=== PATIENT | female | born 1995 | race Caucasian/White ===

== ENCOUNTER 2024-04-20 22:46 | Emergency (ER) | payer BC ==
[~2024-04-20] VITALS: Ht 157.5 cm; Wt 90.9 kg
[2024-04-20] MEDS ORDERED: ipratropium/albuterol 3ml nebule NEB PRN (23:05)
[2024-04-20] MEDS: hydrOXYzine 25 MG tablet PO ONE (23:21)
[2024-04-20] MEDS: famotidine 20mg tablet PO ONE (23:21)
[2024-04-20] MEDS: methylPREDNISolone sod succ 125mg/2ml vial IM ONE (23:22)
[2024-04-20] MEDS: ipratropium/albuterol 3ml nebule NEB STA (23:33)
[2024-04-21] MEDS: LORazepam 2 mg/ml vial IV ONE (01:15)
[2024-04-21] MEDS: normal saline 1000ML IV soln IVB ONE (01:23)
[2024-04-21 02:53] VITALS: BP 131/60; PULSE 92; RESP 14; TEMP 98.4; O2SAT 98
== END 2024-04-21 02:55 | disposition home or self-care (01) ==
LOC: ER 22:47
DX: T88.7XXA Unspecified adverse effect of drug or medicament, initial encounter (principal); T50.905A Adverse effect of unspecified drugs, medicaments and biological substances, initial encounter; Y92.89 Other specified places as the place of occurrence of the external cause
CPT/HCPCS: 71045; 96372; 96374; 99284; J2060; J2919; J7030; Q0177; A6449

== ENCOUNTER 2024-07-02 21:09 | Emergency (ER) | payer BC ==
[~2024-07-02] VITALS: Ht 157.5 cm; Wt 99.3 kg
[2024-07-03 00:42] VITALS: BP 129/74; PULSE 66; RESP 16; TEMP 97.7; O2SAT 99
== END 2024-07-03 02:25 | disposition left against medical advice (07) ==
LOC: ER 21:09
DX: M54.6 Pain in thoracic spine (principal); M54.2 Cervicalgia; R51.9 Headache, unspecified; R50.9 Fever, unspecified; Z53.21 Procedure and treatment not carried out due to patient leaving prior to being seen by health care provider

== ENCOUNTER 2024-07-04 22:20 | Emergency (ER) | payer BC ==
[~2024-07-04] VITALS: Ht 157.5 cm; Wt 97.7 kg
[2024-07-04] MEDS: ketorolac trometh 30MG/ML vial 30 MG/ML VIAL IM STA (23:49)
[2024-07-05 00:29] VITALS: BP 113/67; PULSE 60; RESP 17; TEMP 98.3; O2SAT 100
[2024-07-06] MEDS ORDERED: PRED20TA PO (19:02)
== END 2024-07-05 00:30 | disposition home or self-care (01) ==
LOC: ER 22:21
DX: M54.2 Cervicalgia (principal); M54.6 Pain in thoracic spine; Z88.8 Allergy status to other drugs, medicaments and biological substances
CPT/HCPCS: 96372; 99283; J1885

== ENCOUNTER 2024-07-06 16:25 | Emergency (ER) | payer BC ==
[~2024-07-06] VITALS: Ht 157.5 cm; Wt 97.7 kg
[2024-07-06 16:39] VITALS: PULSE 97; TEMP 98.2
[2024-07-06 17:37] LABS: BASOPHILS # (AUTO) 0.1 X10'3 (0-0.2); BASOPHILS % (AUTO) 0.8 % (0-1); EOSINOPHILS # (AUTO) 0.1 X10'3 (0-0.9); HEMATOCRIT 41.9 % (35.0-45.0); LYMPHOCYTES # (AUTO) 2.5 X10'3 (1.1-4.8); LYMPHOCYTES % (AUTO) 23.7 % (21-51); MEAN CORPUSCULAR HEMOGLOBIN 28.1 PG (27.0-31.0); MEAN CORPUSCULAR HGB CONC 33.4 g/dL (33.0-36.5); MEAN CORPUSCULAR VOLUME 84.1 FL (78-98); MEAN PLATELET VOLUME 7.5 FL (7.4-10.4); MONOCYTES # (AUTO) 0.8 X10'3 (0-0.9); MONOCYTES % (AUTO) 7.3 % (2-12); NEUTROPHILS # (AUTO) 7.1 X10'3 (1.8-7.7); NEUTROPHILS % (AUTO) 67.2 % (42-75); PLATELET COUNT 363 X10'3 (140-440); RED BLOOD COUNT 4.99 X10'6 (4.20-5.60); RED CELL DISTRIBUTION WIDTH 13.2 % (11.5-14.5); WHITE BLOOD COUNT 10.5 X10'3 (4.5-11.0)
[2024-07-06] MEDS ORDERED: iohexol 300mg/ml 100ml inj. ONE (17:45)
[2024-07-06 18:07] LABS: ALANINE AMINOTRANSFERASE 46 U/L (12-78); ALBUMIN 3.7 G/DL (3.4-5.0); ALKALINE PHOSPHATASE 58 IU/L (46-116); ANION GAP 7 (8-16); ASPARTATE AMINO TRANSFERASE 19 U/L (10-37); BILIRUBIN,TOTAL 0.2 MG/DL (0.1-1.0); BLOOD UREA NITROGEN 12 MG/DL (7-18); CALCIUM 8.9 MG/DL (8.5-10.1); CHLORIDE 105 MMOL/L (99-107); CREATININE 1.09 MG/DL (0.40-0.90); GLUCOSE 128 MG/DL (70-104); POTASSIUM 3.9 MMOL/L (3.5-5.1); SODIUM 139 MMOL/L (135-145); TOTAL CARBON DIOXIDE 27.4 MMOL/L (24-32); TOTAL PROTEIN 7.3 G/DL (6.4-8.2); eCRCL 61 ML/MIN; eGFR 60 ML/MIN
[2024-07-06 18:43] LABS: BETA HCG,QUANTITATIVE < 1.0 mIU/ml
[2024-07-06] MEDS ORDERED: PRED20TA PO (19:02)
[2024-07-06] MEDS: dexamethasone sod phosphate 10mg/ml inj IV ONE (19:12)
[2024-07-06 19:18] VITALS: RESP 16
== END 2024-07-06 19:20 | disposition home or self-care (01) ==
LOC: ER 16:26
DX: M54.2 Cervicalgia (principal); M54.6 Pain in thoracic spine
CPT/HCPCS: 36415; 70491; 80053; 84702; 85025; 99285; Q9967; J1100

== ENCOUNTER 2024-08-21 17:46 | Emergency (ER) | payer BC ==
[~2024-08-21] VITALS: Ht 157.5 cm; Wt 97.7 kg
[2024-08-21 20:19] VITALS: BP 124/69; PULSE 77; RESP 11; TEMP 97.8; O2SAT 97
== END 2024-08-21 20:38 | disposition home or self-care (01) ==
LOC: ER 17:47
DX: R55 Syncope and collapse (principal)
CPT/HCPCS: 93005; 99283